=== PATIENT | male | born 1995 | race Caucasian/White ===

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

== ENCOUNTER 2018-09-14 12:19 | Emergency (ER) | payer OTHER ==
[2018-09-14 12:30] VITALS: BP 114/63
--- NOTE | 2018-09-15 07:55 | UC ---
- Progress Note Progress Note: Patient did not have an x-ray on September 14, 2018 therefore there is no discrepancy Course/Dx - Diagnoses Provider Diagnoses: Patient left without being seen Discharge - Sign-Out/Discharge Documenting (check all that apply): Patient Departure All imaging exams completed and their final reports reviewed: No Studies - Discharge Plan Condition: Stable Disposition: LEFT WITHOUT BEING SEEN Referrals: Jill Snider MD [Primary Care Provider] - - Billing Disposition and Condition Condition: STABLE Disposition: Left Without Being Seen
== END 2018-09-14 12:36 | disposition left against medical advice (07) ==
LOC: UCEAST 12:19
DX: R19.7 Diarrhea, unspecified (principal); R51 Headache; K92.0 Hematemesis; Z53.21 Procedure and treatment not carried out due to patient leaving prior to being seen by health care provider

== ENCOUNTER 2018-09-14 14:36 | Emergency (ER) | payer OTHER ==
--- NOTE | 2018-09-14 14:44 | ED ---
GI/ HPI - History of Current Complaint Chief Complaint: EDNauseaVomitDiarrh Time Seen by Provider: 09/14/18 14:42 Stated Complaint: VOMITING BLOOD/ACHES Pain Intensity: 4 - Allergy/Home Medications Allergies/Adverse Reactions: Allergies Allergy/AdvReac Type Severity Reaction Status Date / Time acetaminophen [From Lortab] Allergy Rash And Verified 09/14/18 12:31 Itching hydrocodone [From Lortab] Allergy Rash And Verified 09/14/18 12:31 Itching SEASONAL ALLERGIES Allergy STUFFY Uncoded 10/23/16 08:46 PMH/Surg Hx/FS Hx/Imm Hx Respiratory History: Reports: Other Respiratory Problems/Disorders - TONSILS INFLAMED WITH A SLIGHT HEAD COLD Sensory History: Denies: Hx Contacts or Glasses, Hx Hearing Aid Opthamlomology History: Denies: Hx Contacts or Glasses - Surgical History Surgery Procedure, Year, and Place: tonsils - Immunization History Date of Tetanus Vaccine: UTD Date of Influenza Vaccine: none Infectious Disease History: No Infectious Disease History: Denies: Traveled Outside the [place] in Last 30 Days - Family History Known Family History: Positive: Other - Negative malignant hyperthermia, negative anesthesia reaction - Social History Alcohol Use: Weekly Hx Substance Use: Yes Substance Use Type: Reports: Marijuana Substance Use Comment - Amount & Last Used: 2 X A WEEK Hx Tobacco Use: No Smoking Status (MU): Never Smoked Tobacco Physical Exam Vital Signs On Initial Exam: Initial Vitals Temp Pulse Resp BP Pulse Ox 98.8 F 99 18 147/83 97 09/14/18 14:40 09/14/18 14:40 09/14/18 14:40 09/14/18 14:40 09/14/18 14:40 Diagnostics - Vital Signs Vital Signs Temp Pulse Resp BP Pulse Ox 09/14/18 14:40 98.8 F 99 18 147/83 97 - Laboratory Lab Statement: Any lab studies that have been ordered have been reviewed, and results considered in the medical decision making process. Discharge - Discharge Plan Referrals: Jill Snider MD [Primary Care Provider] - - Attestation Statements Document Initiated by Scribe: Yes
[2018-09-14] MEDS ORDERED: Ondansetron INJ* 2 MG/ML VIAL IV ONE (14:47)
[2018-09-14] MEDS: NS 0.9% 1000 ML* 3,000 ML IV ONE ×2 (15:15→15:43)
[2018-09-14 15:20] LABS: ABS Basophils 0 10^3/ul (0-0.2); ABS Eosinophils 0 10^3/ul (0-0.6); ABS Lymphocytes 0.5 10^3/ul (1.0-4.8); ABS Monocytes 0.5 10^3/ul (0-0.8); ABS Neutrophils 8.5 10^3/ul (1.5-7.7); ABS Nucleated RBC 0 10^3/ul; Eosinophil % 0.4 %; Hematocrit 45 % (42-52); Hemoglobin 15.5 g/dl (14.0-18.0); Lymphocyte % 4.9 %; Mean Corpuscular HGB Conc 34 g/dl (31-36); Mean Corpuscular Hemoglobin 29 pg (27-31); Mean Corpuscular Volume 84 fL (80-94); Mean Platelet Volume 7.7 fL (7.4-10.4); Nucleated Red Blood Cells % 0.2; Platelet Count 210 10^3/ul (150-450); Red Blood Count 5.38 10^6/ul (4.00-5.40); Red Cell Distribution Width 14 % (10.5-15); White Blood Count 9.6 10^3/ul (3.5-10.8)
[2018-09-14 15:25] LABS: Urine Appearance Clear; Urine Blood Negative (Negative); Urine Color Yellow; Urine Ketones Negative (Negative); Urine Protein Negative (Negative); Urine Specific Gravity 1.032 (1.010-1.030); Urine Urobilinogen Negative (Negative)
--- NOTE | 2018-09-14 15:40 | ED ---
Abdominal Pain/Male - HPI Summary HPI Summary: This patient is a 22 year old M presenting to [facility] with a chief complaint of nausea, diarrhea, and abdominal pain with three bouts hematemesis beginning at 03:00 today. Patient reports roughly a tablespoon of bring red blood with each bout of vomiting. Patient is unsure of fever. Reports previous hematemesis in July of 2018. Patient denies previous GI issues, recent travel, or camping. - History of Current Complaint Chief Complaint: EDNauseaVomitDiarrh Stated Complaint: VOMITING BLOOD/ACHES Time Seen by Provider: 09/14/18 14:42 Hx Obtained From: Patient Onset/Duration: Sudden Onset, Lasting Hours Timing: Intermittent Severity Currently: Moderate Pain Intensity: 4 Pain Scale Used: 0-10 Numeric Location: Diffuse Associated Signs And Symptoms: Positive: Nausea, Vomiting, Diarrhea - Allergies/Home Medications Allergies/Adverse Reactions: Allergies Allergy/AdvReac Type Severity Reaction Status Date / Time acetaminophen [From Lortab] Allergy Rash And Verified 09/14/18 12:31 Itching hydrocodone [From Lortab] Allergy Rash And Verified 09/14/18 12:31 Itching SEASONAL ALLERGIES Allergy STUFFY Uncoded 10/23/16 08:46 PMH/Surg Hx/FS Hx/Imm Hx Respiratory History: Reports: Other Respiratory Problems/Disorders - TONSILS INFLAMED WITH A SLIGHT HEAD COLD GI History: Denies: Hx Gastroesophageal Reflux Disease Sensory History: Denies: Hx Contacts or Glasses, Hx Hearing Aid Opthamlomology History: Denies: Hx Contacts or Glasses - Surgical History Surgery Procedure, Year, and Place: tonsils - Immunization History Date of Tetanus Vaccine: UTD Date of Influenza Vaccine: none Infectious Disease History: No Infectious Disease History: Denies: Traveled Outside the [place] in Last 30 Days - Family History Known Family History: Positive: Other - Negative malignant hyperthermia, negative anesthesia reaction Family History: Crohns - sister - Social History Alcohol Use: Weekly Hx Substance Use: Yes Substance Use Type: Reports: Marijuana Substance Use Comment - Amount & Last Used: 2 X A WEEK Hx Tobacco Use: No Smoking Status (MU): Never Smoked Tobacco Review of Systems Negative: Fever Positive: Abdominal Pain, Vomiting - blood, Diarrhea, Nausea All Other Systems Reviewed And Are Negative: Yes Physical Exam - Summary Physical Exam Summary: Appearance: Well-appearing, Well-nourished, lying in bed comfortably Skin: Warm, dry, no obvious rash Eyes: sclera anicteric, no conjunctival pallor ENT: mucous membranes moist, pharynx appears normal Neck: Supple, nontender Respiratory: Clear to auscultation, no signs of respiratory distress Cardiovascular: Normal S1, S2. No murmurs. Normal distal pulses in tibial and radial bilaterally. Abdomen: Soft, nontender, normal active bowel sounds present Musculoskeletal: Normal, Strength/ROM Intact Neurological: A&Ox3, awake and alert, mentation is normal, speech is fluent and appropriate Psychiatric: affect is normal, does not appear anxious or depressed Triage Information Reviewed: Yes Vital Signs On Initial Exam: Initial Vitals Temp Pulse Resp BP Pulse Ox 98.8 F 99 18 147/83 97 09/14/18 14:40 09/14/18 14:40 09/14/18 14:40 09/14/18 14:40 09/14/18 14:40 Vital Signs Reviewed: Yes Diagnostics - Vital Signs Vital Signs Temp Pulse Resp BP Pulse Ox 09/14/18 14:40 98.8 F 99 18 147/83 97 - Laboratory Lab Results: Lab Results 09/14/18 09/14/18 Range/Units 15:08 15:09 WBC 9.6 (3.5-10.8) 10^3/ul RBC 5.38 (4.00-5.40) 10^6/ul Hgb 15.5 (14.0-18.0) g/dl Hct 45 (42-52) % MCV 84 (80-94) fL MCH 29 (27-31) pg MCHC 34 (31-36) g/dl RDW 14 (10.5-15) % Plt Count 210 (150-450) 10^3/ul MPV 7.7 (7.4-10.4) fL Neut % (Auto) 88.8 % Lymph % (Auto) 4.9 % [place] % (Auto) 5.7 % Eos % (Auto) 0.4 % Baso % (Auto) 0.2 % Absolute Neuts (auto) 8.5 H (1.5-7.7) 10^3/ul Absolute Lymphs (auto) 0.5 L (1.0-4.8) 10^3/ul Absolute Monos (auto) 0.5 (0-0.8) 10^3/ul Absolute Eos (auto) 0 (0-0.6) 10^3/ul Absolute Basos (auto) 0 (0-0.2) 10^3/ul Absolute Nucleated RBC 0 10^3/ul Nucleated RBC % 0.2 Urine Color Yellow Urine Appearance Clear Urine pH 6.0 (5-9) Ur Specific [place] 1.032 H (1.010-1.030) Urine Protein Negative (Negative) Urine Ketones Negative (Negative) Urine Blood Negative (Negative) Urine Nitrate Negative (Negative) Urine Bilirubin Negative (Negative) Urine Urobilinogen Negative (Negative) Ur Leukocyte Esterase Negative (Negative) Urine Glucose Negative (Negative) Result Diagrams: 09/14/18 15:08 09/14/18 15:08 Lab Statement: Any lab studies that have been ordered have been reviewed, and results considered in the medical decision making process. Abdominal Pain Fem Course/Dx - Course Course Of Treatment: A 22 y/o male presents to the ED c/o of nausea, diarrhea, and abdominal pain with three episodes hematemesis beginning at 03:00 today. Patient reports roughly a tablespoon of bright red blood coupled with vomiting. Patient is unsure of fever. Reports previous hematemesis in July of 2018. Patient denies previous GI issues, recent travel, or camping. Physical examination was unremarkable. No laboratory scans were done/ Hematology and urinalysis was done. Labs significant for 107 glucose and 7 Lipase, otherwise normal. In the ED course, the patient recieved Maalox, Pepcid, Xylocaine, Zofran , and IV fluids. During re-evaluation, the patient revealed he was feeling much better and would like to go home. Patient will be discharged with a diagnosis viral gastroenteritis and Edilia-Weston tear. Patient will be sent home with Bentyl and Zofran. Patient is to take these medications as prescribed. Patient is to follow up with primary care provider in 2-3 days. Patient is to return to the ED for any new or worsening symptoms. Patient is agreeable with this plan. - Diagnoses Provider Diagnoses: Edilia-Weston tear, Viral gastroenteritis Discharge - Sign-Out/Discharge Documenting (check all that apply): Patient Departure - DISCHARGE - Discharge Plan Condition: Improved Disposition: HOME Prescriptions: Dicyclomine CAP* [Bentyl CAP*] 10 mg PO TID PRN #15 cap PRN Reason: Pain Ondansetron ODT TAB* [Zofran 4 MG Odt TAB*] 8 mg PO Q6H PRN #10 tab.odt PRN Reason: Nausea Patient Education Materials: Dehydration (ED), Gastroenteritis (ED) Referrals: Jill Snider MD [Primary Care Provider] - 2 Days (if not improving) Additional Instructions: FOLLOW UP WITH PRIMARY CARE PROVIDER IN 2-3 DAYS. TAKE MEDICATIONS PRESCRIBED. RETURN TO ED FOR ANY NEW OR WORSENING SYMPTOMS. - Billing Disposition and Condition Condition: IMPROVED Disposition: Home - Attestation Statements Document Initiated by Alvina: Yes Documenting Scribe: Sanjay Wolf Provider For Whom Alvina is Documenting (Include Credential): Sheng Witt MD Scribe Attestation: Sanjay Miranda scribed for Sheng Witt MD on 09/14/18 at 1955. Scribe Documentation Reviewed: Yes Provider Attestation: The documentation as recorded by the Sanjay olmedo accurately reflects the service I personally performed and the decisions made by , Sheng Witt MD Status of Scribe Document: Viewed
[2018-09-14] MEDS ORDERED: Famotidine IV* 10 MG/ML 2 ML (20 mg) IV SLOW PU ONE (15:45)
[2018-09-14] MEDS ORDERED: Al Hydrox/Mg Hydrox/Simet LIQ* 30 ML UDC PO ONE (15:45)
[2018-09-14] MEDS ORDERED: Lidocaine 2% VISCOUS* 15 ML UDC PO ONE (15:45)
[2018-09-14 15:48] LABS: EGFR Non-African American 101.1 (>60)
[2018-09-14 18:27] VITALS: BP 126/66
== END 2018-09-14 18:26 | disposition home or self-care (01) ==
LOC: ED 14:36
DX: K22.6 Gastro-esophageal laceration-hemorrhage syndrome (principal); A08.4 Viral intestinal infection, unspecified
CPT/HCPCS: 36415; 80053; 81003; 83690; 85025; 96361; 96374; 96375; 99283; A9270-GY; J2405